=== PATIENT | female | born 1965 | race Asian ===

== ENCOUNTER 2023-05-06 09:23 | Outpatient (CLI) | payer BC | END 2023-05-06 19:47 | disposition home or self-care (01) | LOC: SNM 09:23 | PROVIDERS: ATTEND Internal Medicine Gastroenterology | DX: K59.04 Chronic idiopathic constipation (principal); K58.0 Irritable bowel syndrome with diarrhea; A04.8 Other specified bacterial intestinal infections; K92.1 Melena; I67.5 Moyamoya disease; K31.89 Other diseases of stomach and duodenum; R14.0 Abdominal distension (gaseous); R10.32 Left lower quadrant pain; Z80.0 Family history of malignant neoplasm of digestive organs | CPT/HCPCS: 78264; A9541 ==